=== PATIENT | female | born 2000 | race Caucasian/White ===

== ENCOUNTER 2022-03-29 03:36 | Emergency (ER) | payer BC ==
[~2022-03-29] VITALS: Ht 170.2 cm; Wt 97.7 kg
[2022-03-29 04:25] VITALS: TEMP 97.8
[2022-03-29] MEDS ORDERED: MAALOX ADVANCE148 ML PO (05:31)
[2022-03-29] MEDS ORDERED: PRILOSEC 20MG20 MG PO (05:31)
[2022-03-29 05:49] VITALS: BP 121/83; PULSE 67
== END 2022-03-29 05:49 | disposition home or self-care (01) ==
LOC: COL.ER 03:36
DX: K29.70 Gastritis, unspecified, without bleeding (principal)
CPT/HCPCS: J1885